=== PATIENT | male | born 1970 | race Caucasian/White ===

== ENCOUNTER → 2019-03-08 15:01 | Outpatient (BNVA) | payer BC, SELFPAY | PROVIDERS: Visit Provider Nurse Practitioner Family | DX: S59.902A Unspecified injury of left elbow, initial encounter (principal); S42.402A Unspecified fracture of lower end of left humerus, initial encounter for closed fracture; X58.XXXA Exposure to other specified factors, initial encounter | CPT/HCPCS: 73080 ==

== ENCOUNTER → 2019-03-22 10:39 | Outpatient (BNVA) | payer BC, SELFPAY | PROVIDERS: Visit Provider Nurse Practitioner Family | DX: M50.30 Other cervical disc degeneration, unspecified cervical region (principal); R53.83 Other fatigue; Z13.6 Encounter for screening for cardiovascular disorders; Z79.899 Other long term (current) drug therapy; E55.9 Vitamin D deficiency, unspecified; R68.89 Other general symptoms and signs | CPT/HCPCS: 36415; 80053; 80061; 81001; 82306; 83036; 84443; 85025 ==

== ENCOUNTER 2019-03-23 09:27 | Outpatient (CLI) | payer BC, SELFPAY ==
--- NOTE | 2019-03-23 09:33 | XRR_ITS ---
PROCEDURE INFORMATION: Exam: XR Cervical Spine, 2 or 3 Views Exam date and time: 03/23/2019 9:34 AM Age: 48 years old Clinical indication: Neck pain; Additional info: Cervical disc disease TECHNIQUE: Imaging protocol: XR of the cervical spine, 2 or 3 views. COMPARISON: No relevant prior studies available. FINDINGS: Vertebrae: Alignment is normal. posterior vertebral line and the spinal laminar line normal odontoid process not visualized no fracture Soft tissues: Normal. Other findings: disk space height preserved; No motion with flexion or extension. XR/XR cervical spine fl/ex [id number] IMPRESSION: Grossly normal cervical spine as visualized by 3 lateral views.
== END 2019-03-23 09:28 | disposition home or self-care (01) ==
LOC: RAD 09:32
PROVIDERS: PCP Nurse Practitioner Family; Visit Provider Nurse Practitioner Family
DX: M50.90 Cervical disc disorder, unspecified, unspecified cervical region (principal)
CPT/HCPCS: 72040

== ENCOUNTER 2021-05-23 09:03 | Outpatient (CLI) | payer OTHER, SELFPAY ==
--- NOTE | 2021-05-23 09:11 | XR_ITS ---
WS: [id number] Cervical spine, 3 views, 05/23/2021 Clinical Data: M54.2 - Cervicalgia Comparison: Cervical spine, 03/23/2019 Findings: No compression fractures are seen. The disc heights are normal. There is no prevertebral so ft tissue swelling. The odontoid is unremarkable. The soft tissues of the neck and the lung apices ar e normal. XR/XR cervical spine 3V* [id number] Impression: Negative cervical spine.
== END 2021-05-23 09:04 | disposition home or self-care (01) ==
PROVIDERS: PCP Nurse Practitioner Family; Visit Provider Family Medicine Adult Medicine
DX: M54.2 Cervicalgia (principal)
CPT/HCPCS: 72040

== ENCOUNTER 2021-05-29 12:11 | Outpatient (CLI) | payer OTHER, SELFPAY ==
--- NOTE | 2021-05-29 12:19 | XR_ITS ---
WS: [id number] Exam: XR shoulder RT min 2V* [id number] Date/Time of Exam: 05/29/2021 12:20 PM Reason For Exam: M25.511 - Pain in right shoulder No acute fracture or dislocation. Healed fracture of the right clavicle. Minimal degenerative change at the AC joint.. Normal soft tissues. XR/XR shoulder RT min 2V* [id number] IMPRESSION: 1. No acute fracture or dislocation. Old right clavicle fracture.
== END 2021-05-29 12:12 | disposition home or self-care (01) ==
LOC: RAD 12:13
PROVIDERS: PCP Nurse Practitioner Family; Visit Provider Nurse Practitioner Family
DX: M25.511 Pain in right shoulder (principal); R53.83 Other fatigue; E78.5 Hyperlipidemia, unspecified
CPT/HCPCS: 73030; 80053; 80061; 84443

== ENCOUNTER → 2022-09-03 13:30 | Outpatient (BNVA) | payer OTHER, SELFPAY | PROVIDERS: PCP Nurse Practitioner Family; Visit Provider Nurse Practitioner Family | DX: M25.50 Pain in unspecified joint (principal) | CPT/HCPCS: 84550; 86038; 86431 ==

== ENCOUNTER 2024-03-30 11:06 | Day surgery (SDC) | payer OTHER, SELFPAY ==
[2024-03-30] VITALS (19 sets, daily range): BP systolic 98–157; BP diastolic 67–108; PULSE 76–96; RESP 11–18; TEMP 36.3–37.4; O2SAT 90–98; BMI 30.8
--- NOTE | 2024-03-30 11:22 | ED_ITS ---
HPI - Abdominal Pain 2 General: Chief Complaint: Abdominal Pain Stated Complaint: abdominal pain Time Seen by Provider: 03/30/24 11:15 Source: patient Mode of arrival: ambulatory Limitations: no limitations History of Present Illness: 53-year-old male states been having righ t sided abdominal pain since yesterday afternoon. States pains been sharp it has been worsening states both in his right upper and right lower quadrant. States the pain is worse with movement along with palpation he has had some nausea denies any vomiting or diarrhea denies any dysuria. Associated Symptoms: Reports nausea; Denies chills, diarrhea, dysuria, fever(s) and vomiting Related Data Previous Rx's ?Medication ?Instructions ?Recorded scopolamine base 1 mg over 3 days 1 patch transdermal Q3D PRN nausea 03/16/24 transdermal patch and vomiting #4 ea azithromycin 250 mg tablet See Rx Instructions PO .COM PLEX #6 03/18/24 (Zithromax Z-Joshua) tabs Allergies Allergy/AdvReac Type Severity Reaction Status Date / Time ibuprofen AdvReac sick Verified 03/16/24 11:45 Review of Systems 2 Const: Denies: fever(s), chills, body aches or change in appetite ENMT: Denies: throat pain or dental pain Card: Denies: chest pain Resp: Denies: dyspnea GI: Reports: abdominal pain and nausea; Denies: vomiting or diarrhea : Denies: dysuria Musc: Denies: neck pain or back pain Skin/Breast: Denies: rash Neuro: Denies: headache(s) PFSH ED 2 PFSH: Medical History Fracture of unspecified part of unspecified clavicle, initial encounter for closed fracture Vitamin D deficiency DDD (degenerative disc disease), cervical Patient has history of multilevel DDD. He reports he had MRI of Cervical Spine previously in [place] that showed some change in curvature of the spine. He has had lumbar surgery in the past. Surgical History History of back surgery History of amputation of finger L. middle finger History of tonsillectomy and adenoidectomy Hx of shoulder surgery Status post lumbar surgery Family History Mother Cancer Diabetes Hypertension Hyperlipidemia Stroke Family/Other Diabetes Hypertension Hyperlipidemia Mother Hypertension Denies family history of CAD (coronary artery disease) Dementia Chronic kidney disease (CKD) Lung disease Social History Smoking and tobacco/nicotine status: former use of tobacco/nicotine Quit status (tobacco/nicotine): has quit using Year quit tobacco: 03/2022 Alcohol intake: current Alcohol intake frequency: few times a week Substance/Drug Use: never Adopted: No Lives independently: No Household members: spouse Housing: House Marital status: service: No Current occupational status: employed Sexually active: Yes Do you think of yourself as: Straight/Heterosexual Current gender identity: Male Physical Exam 2 Const: COMMON NORMALS: no acute distress, patient oriented x3 and healthy appearing HENMT: COMMON NORMALS: normocephalic and atraumatic HEAD & SCALP: n ormocephalic and atraumatic Eye: COMMON NORMALS: conjunctivae normal CONJUNCTIVA: Yes conjunctivae normal Neck/C-Spine: COMMON NORMALS: full ROM and supple Chest: COMMONS NORMALS: normal inspection of the chest Resp: COMMON NORMALS: normal respiratory effort, No retractions, No use of accessory muscles and clear to auscultation bilaterally AUSCULTATION: clear to auscultation bilaterally Cardio: COMMON NORMALS: regular rate, regular rhythm and No murmurs present (Cardio) RATE: regular rate RHYTHM: regular rhythm GI: COMMON NORMALS: Normal to inspection, nondistended, normoactive bowel sounds present, Soft to palpation and no masses PALPATION: Yes Soft to palpation and Yes Tenderness to palpation present (GI) (right sided tenderness) Extremity: COMMON NORMALS: normal to inspection and full ROM Neuro: COMMON NORMALS: patient oriented x3, moves all extremities and no focal motor deficits Psych: COMMON NORMALS: mental status grossly normal, Normal thought process present and cooperative THOUGHT PROCESS: Normal thought process present Skin: COMMON NORMALS: no rashes or lesions noted and no wounds GENERAL SKIN EXAM: no rashes or lesions noted Course 2 Vital Signs: Vital signs: Vital Signs Temperature 99.3 F 03/30/24 11:17 Pulse Rate 84 03/30/24 12:20 Respiratory Rate 18 03/30/24 11:36 Blood Pressure 138/101 03/30/24 12:20 Pulse Oximetry 92 03/30/24 12:20 Oxygen Delivery Me thod Room Air 03/30/24 12:20 MDM - Abdominal Pain Medical Decision Making Patient presents here with abdominal pain CT did show appendicitis spoke to surgeon on-call who is coming to see patient at this time. Medical Records I reviewed the patient's medical records. Lab Data I reviewed the patient's lab results. 03/30/24 11:24 03/30/24 11:24 Labs/Radiology: Laboratory Results WBC 13.17 10^3/uL (3.29-11.43) H 03/30/24 11:24 RBC 5.01 10^6/uL (3.85-5.65) 03/30/24 11:24 Hgb 15.30 g/dL (11.27-16.99) 03/30/24 11:24 Hct 46.0 % (37-53) 03/30/24 11:24 MCV 91.8 fl (82-101) 03/30/24 11:24 MCH 30.5 pg (27-33) 03/30/24 11:24 MCHC 33.3 g/dL (30-55) 03/30/24 11:24 RDW 13.2 % (12.1-15.1) 03/30/24 11:24 Plt Count 230 10^3/cmm (157-399) 03/30/24 11:24 MPV 9.8 fL (7.4-10.4) 03/30/24 11:24 Neut % (Auto) 81.0 % 03/30/24 11:24 Lymph % (Auto) 12.1 % 03/30/24 11:24 Bucks % (Auto) 6.3 % 03/30/24 11:24 Eos % (Auto) 0.1 % 03/30/24 11:24 Baso % (Auto) 0.3 % 03/30/24 11:24 Neut # (Auto) 10.66 10^3/uL (1.8-7.7) H 03/30/24 11:24 Lymph # (Auto) 1.6 10^3/uL (0.8-4.8) 03/30/24 11:24 Bucks # (Auto) 0.8 10^3/uL (0.2-0.9) 03/30/24 11:24 Eos # (Auto) 0.0 10^3/uL (0.0-0.8) 03/30/24 11:24 Baso # (Auto) 0.0 10^3/uL (0.0-0.1) 03/30/24 11:24 Nucleated RBC % (auto) 0 % 03/30/24 11:24 Nucleated RBCs # 0.0 /100WBC 03/30/24 11:24 Sodium 139 mmol/L (136-145) 03/30/24 11:24 Potassium 3.9 mmol/L (3.5-5.1) 03/30/24 11:24 Chloride 98 mmol/L (98-107) 03/30/24 11:24 Carbon Dioxide 25 mmol/L (22-29) 03/30/24 11:24 Anion Gap 19.9 (5-19) H 03/30/24 11:24 BUN 8 mg/dL (6-20) 03/30/24 11:24 Creatinine 0.9 mg/dL (0.7-1.2) 03/30/24 11:24 GFR Calculation 88.6 mL/min (90-130) L 03/30/24 11:24 Glucose 122 mg/dL (65-115) H 03/30/24 11:24 Calculated Osmolality 288 mOsm/kg (285-295) 03/30/24 11:24 Calcium 9.8 mg/dL (8.5-10.5) 03/30/24 11:24 Total Bilirubin 0.5 mg/dL (0.15-1.2) 03/30/24 11:24 AST 16 U/L (0-40) 03/30/24 11:24 ALT 31 U/L (0-41) 03/30/24 11:24 Alkaline Phosphatase 86 U/L (40-130) 03/30/24 11:24 Total Protein 7.6 g/dL (6.6-8.7) 03/30/24 11:24 Albumin 4.3 g/dL (3.5-5.2) 03/30/24 11:24 Globulin 3.3 g/dL (1.3-4.6) 03/30/24 11:24 Lipase 19 U/L (13-60) 03/30/24 11:24 Urine Color Yellow (Yellow) 03/30/24 12:00 Urine Appearance Clear (CLEAR) 03/30/24 12:00 Urine pH 6.0 (5-7) 03/30/24 12:00 Ur Specific [place] 1.076 (1.005-1.030) H 03/30/24 12:00 Urine Protein Negative (Negative) 03/30/24 12:00 Urine Glucose (UA) Negative (Normal) 03/30/24 12:00 Urine Ketones Negative (Negative) 03/30/24 12:00 Urine Blood Negative (Negative) 03/30/24 12:00 Urine Nitrate Negative (Negative) 03/30/24 12:00 Urine Bilirubin Negative (Negative) 03/30/24 12:00 Urine Urobilinogen 0.2 mg/dL (Negative) 03/30/24 12:00 Ur Leukocyte Esterase Negative (Negative) 03/30/24 12:00 Amorphous Sediment Not Reportable 03/30/24 12:00 All radiology interpretation(s) finalized by discharge Discharge Plan Discharge Patient Disposition: Admitted As Inpatient Clinical Impression: Acute appendicitis Condition: Stable Prescriptions: No Action scopolamine base 1 mg over 3 days patch 3 day 1 patch transdermal Q3D PRN (Reason: nausea and vomiting) Qty: 4 0RF azithromycin [Zithromax Z-Joshua] 250 mg tablet See Rx Instructions PO .COMPLEX Qty: 6 0RF Rx Instructions: For 250 mg dose pack: take 500 mg today (day 1), then 250 mg for 4 days (days 2-5) PO Referrals: Mercedes Osborne FNP [Primary Care Provider] - Patient Instructions: Appendicitis (GEN) Print Language: Danish Coding Level of Care Code ED Sheeter Helper for [facility]
--- NOTE | 2024-03-30 11:22 | CT_ITS ---
WS: [id number] CT ABDOMEN PELVIS TECHNIQUE: Contrast-enhanced CT of the abdomen and pelvis with coronal and sagittal reformatted images. CLINICAL INFORMATION: r nayan side abd pain COMPARISON: None. DLP: 1002.[address] scans at [facility] use at least one of these dose optimization techniques: automated exposure control; mA and/or kV adjustment per patient size (includes targeted exams where dose is matched to clinical indication); or iterative reconstruction. FINDINGS: Fluid distended appendix with associated enhancement. Surrounding inflammatory stranding and edema compatible with acute appendicitis. No fluid collection or abscess. Suggestion of a fatty appendicolith in the proximal appendix Hepatomegaly. Diffuse fatty infiltration of the liver. Normal portal vein and splenic vein. Small LEFT hepatic cysts. Normal GE junction. Normal spleen. Fatty atrophy of the pancreas. Adrenal glands are normal. No hydronephrosis in either kidney. Normal renal parenchymal enhancement. Normal caliber abdominal aorta. Celiac and SMA are patent. Mild disc bulging L3-L5. Slight bibasilar atelectasis. Noncalcified nodule partially visualized in the lingula measuring 9 mm. Recommend further evaluation with chest CT. Tiny fat- containing umbilical hernia. Trace fluid in the pelvis CT/CT abdomen pelvis w con* [id number] IMPRESSION: 1. Findings compatible with acute appendicitis described above. 2. Suggestion of a faint appendicolith in the proximal appendix 3. Diffuse fatty infiltration of liver with mild hepatomegaly. 4. A few incidental hepatic cysts in the dome of the liver. 5. 9 mm noncalcified nodule in the lingula. Recommend further evaluation with chest CT on an outpatient basis. 6. No other acute findings. Notified Yury Hatch MD at 03/30/2024 12:31 PM.
[2024-03-30 11:28] LABS: Basophils % 0.3 %; Eosinophils % 0.1 %; Lymphocytes # 1.6 10^3/uL (0.8-4.8); Lymphocytes % 12.1 %; Mean Corpuscular HGB Conc 33.3 g/dL (30-55); Mean Corpuscular Hemoglobin 30.5 pg (27-33); Mean Corpuscular Volume 91.8 fl (82-101); Mean Platelet Volume 9.8 fL (7.4-10.4); Monocytes # 0.8 10^3/uL (0.2-0.9); Monocytes % 6.3 %; Neutrophils # 10.66 10^3/uL (1.8-7.7); Nucleated Red Blood Cells % 0 %; Platelet Count 230 10^3/cmm (157-399); Red Blood Count 5.01 10^6/uL (3.85-5.65); Red Cell Distribution Width 13.2 % (12.1-15.1); White Blood Count 13.17 10^3/uL (3.29-11.43)
[2024-03-30] MEDS: iohexol 350 mg/mL 500 mL Btl (per mL) IV (11:31)
[2024-03-30] MEDS: ondansetron 2 mg/ML SDV 2 mL 4 MG IVP (11:35)
[2024-03-30] MEDS: morphine 4 mg/mL SDV 1 mL IVP (11:36)
[2024-03-30 11:52] LABS: Alanine Aminotransferase 31 U/L (0-41); Albumin Level 4.3 g/dL (3.5-5.2); Alkaline Phosphatase 86 U/L (40-130); Anion Gap 19.9 (5-19); Aspartate Amino Transferase 16 U/L (0-40); Blood Urea Nitrogen 8 mg/dL (6-20); Calcium 9.8 mg/dL (8.5-10.5); Carbon Dioxide 25 mmol/L (22-29); Chloride 98 mmol/L (98-107); Creatinine Clr Calc Pharmacy 112.4564; Globulin 3.3 g/dL (1.3-4.6); Glomerular Filtration Rate 88.6 mL/min (90-130); Glucose 122 mg/dL (65-115); Lipase 19 U/L (13-60); Osmolality Calculated 288 mOsm/kg (285-295); Potassium 3.9 mmol/L (3.5-5.1); Sodium 139 mmol/L (136-145); Total Bilirubin 0.5 mg/dL (0.15-1.2); Total Protein 7.6 g/dL (6.6-8.7)
[2024-03-30 12:06] LABS: Add Urine Microscopic? NO
[2024-03-30 12:08] LABS: Bilirubin Urine Negative (Negative); Blood Urine Negative (Negative); Glucose Urine UA Negative (Normal); Ketones Urine Negative (Negative); Leukocyte Esterase Urine Negative (Negative); Nitrate Urine Negative (Negative); Protein Urine Negative (Negative); Urine Appearance Clear (CLEAR); Urine Color Yellow (Yellow); Urobilinogen Urine 0.2 mg/dL (Negative)
[2024-03-30 12:09] LABS: Specific Gravity, Urine 1.076 (1.005-1.030)
[2024-03-30 12:10] LABS: Add Urine Culture? No; Charge for UA Resulting for Rev
[2024-03-30] MEDS: HYDROMORPHONE HCL 0.5 MG/0.5 ML INJ 1 MG IVP (12:18)
[2024-03-30] MEDS: piperacillin-tazobactam 3.375 GM in sodium chloride 0.9% (plus) 50 ML IV (12:52)
--- NOTE | 2024-03-30 13:08 | PC.NURSE ---
pt put on 1L NC, O2 at times down to 87% after pain medication admin, currently o2 up to 92%.
--- NOTE | 2024-03-30 13:22 | P.ANESASSM_ITS ---
Pre-Anesthetic Assessment Height/Weight: Height 5 ft 10 in Weight 215 lb Temp Pulse Resp BP Pulse Ox O2 Del Method O2 Flow Rate 99.3 F 84 18 136/90 95 Nasal Cannula 1 03/30/24 11:17 03/30/24 13:00 03/30/24 11:36 03/30/24 13:00 03/30/24 13:00 03/30/24 13:00 03/30/24 13:00 Preop Diagnosis: Acute appendicitis Operation Date: 03/30/24 14:20 Proposed Procedures p Laparoscopic Appendectomy(Not Applicable) - Jorge Mensah MD Was Beta Angelina taken within 24 hours: N/A Was Clonidine taken within 24 hours: N/A Social No alcohol and No tobacco Quit smoking 2 years ago Exam alert, oriented x 3, clear to auscultation bilaterally and regular rate & rhythm Airway Submandibular: within normal limits Cervical ROM: within normal limits Mallampati: Class II Dentition: false Comments: Comments: Upper dentures, denies any loose teeth on bottom Anesthetic Plan ASA status: 2E Anesthesia: General Other: No prior issues with anesthesia NPO since yesterday at 3 PM Patient has a history of Gordon's palsy, 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 No current symptoms Prior smoker, quit 2 years ago Denies any cardiac issues. Preop BP 136/90 Labs reviewed from today and acceptable for procedure Plan for GETA Medications/Allergies Home Medications ?Medication ?Instructions ?Recorded ?Confirmed ?Last Taken ?Type scopolamine base 1 mg over 3 days 1 patch transdermal Q3D PRN nausea 03/16/24 03/30/24 Unknown Rx transdermal patch and vomiting #4 ea azithromycin 250 mg tablet See Rx Instructions PO .COM PLEX #6 03/18/24 03/30/24 Unknown Rx (Zithromax Z-Joshua) tabs Allergies Allergy/AdvReac Type Severity Reaction Status Date / Time ibuprofen AdvReac sick Verified 03/16/24 11:45 [facility] Anesthesia Medical History Fracture of unspecified part of unspecified clavicle, initial encounter for closed fracture Vitamin D deficiency DDD (degenerative disc disease), cervical Patient has history of multilevel DDD. He reports he had MRI of Cervical Spine previously in [place] that showed some change in curvature of the spine. He has had lumbar surgery in the past. Surgical History History of back surgery History of amputation of finger L. middle finger History of tonsillectomy and adenoidectomy Hx of shoulder surgery Status post lumbar surgery Family History Mother Cancer Diabetes Hypertension Hyperlipidemia Stroke Family/Other Diabetes Hypertension Hyperlipidemia Mother Hypertension Denies family history of CAD (coronary artery disease) Dementia Chronic kidney disease (CKD) Lung disease Social History Smoking and tobacco/nicotine status: former use of tobacco/nicotine Quit status (tobacco/nicotine): has quit using Year quit tobacco: 03/2022 Alcohol intake: current Alcohol intake frequency: few times a week Substance/Drug Use: never Adopted: No Lives independently: No Household members: spouse Housing: House Marital status: service: No Current occupational status: employed Sexually active: Yes Do you think of yourself as: Straight/Heterosexual Current gender identity: Male Data Anesthesia 03/30/24 11:24 03/30/24 11:24 Short CBC 03/30/24 Range/Units 11:24 WBC 13.17 H (3.29-11.43) 10^3/uL Hgb 15.30 (11.27-16.99) g/dL Hct 46.0 (37-53) % MCV 91.8 (82-101) fl Plt Count 230 (157-399) 10^3/cmm Neut % (Auto) 81.0 % Neut # (Auto) 10.66 H (1.8-7.7) 10^3/uL BMP 03/30/24 11:24 Sodium 139 Potassium 3.9 Chloride 98 Carbon Dioxide 25 BUN 8 Creatinine 0.9 Glucose 122 H Calcium 9.8 Liver Function 03/30/24 Range/Units 11:24 Total Bilirubin 0.5 (0.15-1.2) mg/dL AST 16 (0-40) U/L ALT 31 (0-41) U/L Alkaline Phosphatase 86 (40-130) U/L Albumin 4.3 (3.5-5.2) g/dL Urine 03/30/24 Range/Units 12:00 Urine Color Yellow (Yellow) Urine Appearance Clear (CLEAR) Urine pH 6.0 (5-7) Ur Specific [place] 1.076 H (1.005-1.030) Urine Protein Negative (Negative) Urine Glucose (UA) Negative (Normal) Urine Ketones Negative (Negative) Urine Nitrate Negative (Negative) Urine Bilirubin Negative (Negative) Ur Leukocyte Esterase Negative (Negative) Cardiac Studies: 2 No Data to Display
--- NOTE | 2024-03-30 13:23 | PC.NURSE ---
pt left to OR. VS 136/90, O2 94%, HR 85.
--- NOTE | 2024-03-30 13:47 | P.HP_ITS ---
Providers/Chief Complaint 2 Primary Care Provider: DAVID Bowers Chief Complaint: abdominal pain History of Present Illness Alex Alvarez is a 53 year old male Who presents to the hospital complaining of 24 hours of abdominal pain located right lower quadrant. Pain has become sharp over time, is associated with anorexia. Denies nausea or vomiting. Had a slight temperature of 99.3. CT scan in the ED show evidence of acute appendicitis without evidence of perforation. Review of Systems 2 General: Reports: 10 or more systems reviewed and unremarkable except in HPI and below Medications/Allergies Home Medications ?Medication ?Instructions ?Recorded ?Confirmed ?Last Taken ?Type scopolamine base 1 mg over 3 days 1 patch transdermal Q3D PRN nausea 03/16/24 03/30/24 Unknown Rx transdermal patch and vomiting #4 ea azithromycin 250 mg tablet See Rx Instructions PO .COM PLEX #6 03/18/24 03/30/24 Unknown Rx (Zithromax Z-Joshua) tabs Allergies Allergy/AdvReac Type Severity Reaction Status Date / Time ibuprofen AdvReac sick Verified 03/16/24 11:45 PFSH Acute 2 PFSH: Medical History Fracture of unspecified part of unspecified clavicle, initial encounter for closed fracture Vitamin D deficiency DDD (degenerative disc disease), cervical Patient has history of multilevel DDD. He reports he had MRI of Cervical Spine previously in [place] that showed some change in curvature of the spine. He has had lumbar surgery in the past. Surgical History History of back surgery History of amputation of finger L. middle finger History of tonsillectomy and adenoidectomy Hx of shoulder surgery Status post lumbar surgery Family History Mother Cancer Diabetes Hypertension Hyperlipidemia Stroke Family/Other Diabetes Hypertension Hyperlipidemia Mother Hypertension Denies family history of CAD (coronary artery disease) Dementia Chronic kidney disease (CKD) Lung disease Social History Smoking and tobacco/nicotine status: former use of tobacco/nicotine Quit status (tobacco/nicotine): has quit using Year quit tobacco: 03/2022 Alcohol intake: current Alcohol intake frequency: few times a week Substance/Drug Use: never Adopted: No Lives independently: No Household members: spouse Housing: House Marital status: service: No Current occupational status: employed Sexually active: Yes Do you think of yourself as: Straight/Heterosexual Current gender identity: Male Vitals/I&O/Wt Last Vital Signs Temp 99.3 F 03/30/24 11:17 Pulse 84 03/30/24 13:00 Resp 18 03/30/24 11:36 BP 136/90 03/30/24 13:00 Pulse Ox 95 03/30/24 13:00 O2 Del Method Nasal Cannula 03/30/24 13:00 O2 Flow Rate 1 03/30/24 13:00 03/29/24 03/30/24 03/30/24 22:59 06:59 14:59 Intake Total 50 / 50 Balance 50 / 50 Weight last 48 hrs Weight 215 lb Physical Exam 2 Narrative: general : Patient is well developed , no acute distress, oriented x3 Head : Normal cephalic, a-traumatic. Nose : Mucous membranes are without erythema. Lungs : Equal chest rise bilaterally, no use of accessory muscles, trachea is midline. CV : Rate and rhythm are normal. Abdomen : Soft, there is tenderness to palpation especially in the right lower quadrant with localized peritonitis at the level Extremities : No edema. Upper extremities are normal bilaterally. Back : non-tender to palpation, no CVA tenderness. Data 03/30/24 11:24 03/30/24 11:24 A&P Assessment and plan (1) Acute appendicitis with localized peritonitis: Plan After complete history physical examination and review of all available clinical data the following is my assessment. Patient does have acute appendicitis, laparoscopic appendectomy is indicated. I discussed all recent benefits of the procedure including the risk of bleeding, infection, injury to surrounding structures including the colon and the small bowel, ureter, vessels of the pelvis. I Explained the risks of intra-abdominal abscess, hernia formation, need for additional operations and conversion to open procedure. Patient shows understanding wishes to proceed. PDMP PDMP Reviewed: Not Reviewed Attestations 2 Medical Necessity Statement*: Patient will likely be discharged after surgery. Coding Level of Care Code Acute Code for [facility] Diagnoses Acute appendicitis with localized peritonitis K35.30
[2024-03-30] MEDS: sodium chloride 0.9% 1,000 ML 30 ML IV (14:00)
[2024-03-30] MEDS: ceFAZolin 2,000 mg SDV 2000 MG IVP (14:12)
[2024-03-30] MEDS: BUPivacaine 0.25% INJ 10 mL INJECTION (14:48)
[2024-03-30] MEDS: lidocaine-epi 1% PF 1:200,000 30 mL SDV INJECTION (14:48)
--- NOTE | 2024-03-30 15:15 | PM.OP ---
Operative Report Date of procedure: March 30, 2024 Pre-op diagnosis: Acute appendicitis Post-op diagnosis: Same Post-op findings: Appendix was inflamed mainly in the distal two thirds, the mesoappendix was fused with part of the mesentery of the small bowel Procedure done: Laparoscopic appendectomy Specimens removed/disposition: Appendix Surgeon: Jorge Mensah MD Fruit Or Nut Grower: YOUNG OR Staff Estimated blood loss: 5 Complications: None apparent Brief History: 53-year-old male who presents with acute appendicitis verified by imaging. After discussion of all risk and benefits as documented in my preop note we decide to proceed to the OR for laparoscopic appendectomy. Procedure: Patient was brought into the OR. General anesthesia was given. The abdomen was prepped and draped in the usual sterile fashion. Timeout was done. The abdomen was accessed via a 5 mm Optiview trocar in the left upper quadrant. Pneumoperitoneum was obtained and no evidence of visceral injury during entry was noted. 12 mm trocar was then placed on the supra umbilical location under direct visualization and a 5 mm trocar was placed in the infraumbilical position under direct visualization. The appendix with a small surrounding inflammatory phlegmon was located almost in the right upper quadrant. The patient was placed in a steep reverse Trendelenburg and the left side down. I then proceeded to expose the appendix by removing the surrounding small bowel from the area of interest. Appendix appears significantly inflamed in the distal two thirds. I grasped the appendix and elevated. The mesoappendix was completely fused with the mesentery of the small bowel. I therefore used careful dissection with LigaSure to take down the meso very close to the wall of the appendix to prevent injury to underlying structures. The mass was taken all the way down to the base of the appendix. The base of appendix was healthy. I then proceeded to transect the appendix with a 45 mm blue load Endo BLADIMIR stapler. The staple line was hemostatic and healthy. The specimen was removed via the supraumbilical trocar site using an Endo Catch bag. I then proceeded to remove small amount of inflammatory fluid from the appendiceal bed using a Ray-Da. Additional expansion of the area showed no evidence of visceral injury, hemostatic staple line and no additional pathology. The omentum was used to cover the staple line. The supraumbilical trocar site was closed using #0 Vicryl with a Abdoul-Marylin under direct visualization. The infraumbilical trocar was removed under direct visualization the left upper quadrant trocar was used to acquire the pneumoperitoneum and subsequently removed. At the end of the procedure all counts were correct, the patient tolerated well the procedure was transferred to PACU in stable condition.
[2024-03-30] MEDS: oxyCODONE 5 mg IR Tab/Cap PO (16:31)
--- NOTE | 2024-03-30 16:48 | ANE.PACU2 ---
Inpatient post-anesthesia follow up: Airway intact: Yes Vital signs: Temperature 97.3 F Pulse Rate 80 Respiratory Rate 17 Blood Pressure 108/87 Pulse Oximetry 96 Oxygen Delivery Me thod Room Air Oxygen Flow Rate 2 Fraction of Inspir ed Oxygen Hydration adequate: Yes Nausea and vomiting: No Pain level: 1 Mental status: Baseline
== END 2024-03-30 13:17 | disposition home or self-care (01) ==
LOC: ER 12:48 → OR 13:17
PROVIDERS: Emergency Provider Emergency Medicine; PCP Nurse Practitioner Family; Visit Provider Surgery
PROC: 0DTJ4ZZ Resection of Appendix, Percutaneous Endoscopic Approach (ICD-10-PCS; CPT 44970; principal; 2024-03-30 14:20)
DX: K35.33 Acute appendicitis with perforation, localized peritonitis, and gangrene, with abscess (principal); Z87.891 Personal history of nicotine dependence
CPT/HCPCS: 44970; 74177; 80053; 81003; 83690; 85025; 88304; A4216; J0131; J0690; J1100; J1171; J2250; J2270; J2405; J2543; J2704; J3010; J3490; J7030